=== PATIENT | male | born 1965 | race Caucasian/White ===

== ENCOUNTER → 2017-03-16 | Outpatient (CLI) | payer BC ==
--- NOTE | 2017-03-16 11:50 | KCIC ---
MR of the right knee Indication: Right knee swelling and medial pain for 2 months. Technique: The standard multiplanar sequences are obtained. Findings: Medial meniscus:Intact. Lateral meniscus: Intact. Anterior cruciate ligament: Intact Posterior cruciate ligament: Intact Medial collateral ligament: Intact. Iliotibial band: Intact. Lateral collateral ligament: Mild proximal thickening and signal compatible with degeneration or scarring. No acute tear. Posterolateral corner: Mild degenerative signal at the femoral attachment, without acute rupture. Extensor mechanism: Intact. Fluid: Large joint effusion. Articular cartilage -patellofemoral joint: Minimal irregularity of the patellar cartilage compatible with mild superficial chondromalacia. -medial compartment: Severe full-thickness cartilage loss at the weightbearing medial femoral condyle, with a defect measuring 12 mm wide by up to 25 mm AP. Subjacent acute subchondral bone marrow edema. -lateral compartment:Intact Bones: No significant lesion or acute fracture. Soft tissue: Subcutaneous edema along the anterior knee. Edema or contusion within the infrapatellar fat. Impression: 1. Moderate sized full-thickness articular cartilage defect of the medial femoral condyle, could be degenerative versus a more acute articular cartilage tear. Although considered, a loose articular cartilage fragment is not localized. 2. No evidence of meniscal tear or other internal derangement. Electronically signed by: Pablo Vaughn MD (03/16/2017 11:47 AM) [id number]
== END | disposition home or self-care (01) ==
LOC: KCIC MRI 07:49
PROVIDERS: ATTEND Orthopaedic Surgery
DX: M94.261 Chondromalacia, right knee (principal); R60.0 Localized edema
CPT/HCPCS: 73721